=== PATIENT | female | born 1970 | race Two or more races ===

== ENCOUNTER 2016-06-01 09:59 | Outpatient (CLI) | payer MEDICAID ==
[2016-06-01 10:40] VITALS: BMI 26.5
--- NOTE | 2016-06-01 12:53 | US ---
HISTORY: Nonreactive NST Estimated due date 06/20/2016. 37 weeks 2 days gestation. biophysical profile score requested. FINDINGS: BREATHING MOVEMENTS: 2 MOTION: 2 TONE: 2 AMNIOTIC FLUID VOLUME: 2 TOTAL: 8 AMNIOTIC FLUID INDEX: 12.81 cm. HEART RATE: 141 bpm. PLACENTA: Grade 2 PRESENTATION: Transverse, head to maternal left IMPRESSION: biophysical profile score 8. Unremarkable limited biophysical profile with heart tones of 141 bpm. Follow-up as quickly warranted.
== END 2016-06-01 12:50 | disposition home or self-care (01) ==
LOC: FBCOUT 09:59 → FBC 10:12 → FBCOUT 12:50
PROVIDERS: ATTEND Obstetrics & Gynecology
DX: O76 Abnormality in fetal heart rate and rhythm complicating labor and delivery (principal); O32.2XX0 Maternal care for transverse and oblique lie, not applicable or unspecified; Z3A.00 Weeks of gestation of pregnancy not specified; O09.529 Supervision of elderly multigravida, unspecified trimester

== ENCOUNTER 2016-06-08 09:55 | Outpatient (CLI) | payer MEDICAID ==
[2016-06-08 10:56] VITALS: BMI 27.2
--- NOTE | 2016-06-08 11:35 | US ---
Exam: Ultrasound biophysical profile COMPARISON: 06/01/2016 INDICATION: Nonreactive NST. ROSEMARIE 06/20/2016 Findings: Biophysical profile ultrasound was obtained. Real-time sonographic imaging demonstrated a single live intrauterine in breech presentation with a heart rate of 164 bpm. ABI is 9.3 cm. Biophysical profile is as follows: breathing movements: 2 motion: 2 tone: 2 Amniotic fluid volume: 2 Total score: 8 out of 8. IMPRESSION: 1. Normal biophysical profile, score 8 out of 8. 2. Single live intrauterine in breech presentation with a heart rate of 164 bpm. 3. ABI 9.3 cm. Report called to Rene in the [facility] 1131 hours 06/08/2016.
== END 2016-06-08 12:05 ==
LOC: FBC 09:55 → FBCOUT 09:55
PROVIDERS: ATTEND Obstetrics & Gynecology
DX: O24.419 Gestational diabetes mellitus in pregnancy, unspecified control (principal); O09.529 Supervision of elderly multigravida, unspecified trimester; Z3A.00 Weeks of gestation of pregnancy not specified

== ENCOUNTER 2016-06-12 07:12 | Inpatient (IN) | payer MEDICAID ==
[2016-06-12 08:08] VITALS: BMI 26.6
[2016-06-12] MEDS ORDERED: LACTATED RINGERS 1,000 ML ONE (08:58)
[2016-06-12] MEDS ORDERED: IV START KIT ONE ×2 (08:58→09:32)
--- NOTE | 2016-06-12 09:09 | PDOC1 ---
- HPI 45 year old at 38+6/7 weeks gestational age by LMP, confirmed with 24- week ultrasound. Pt is gestational diabetic who is scheduled for primary c/ section tomorrow for transverse presentation. Pt comes in labor with ctx q 3-4 min and was found to be 3-4/80/-3. Bedside u/s confirms cephalic presentation. However, upon admission, FHT noted to be 130's, minimal variability and recurrent late decelerations. At this time, recommendation is to proceed with primary c/section for non-reassuring tracing. Advanced maternal age elevated quad screen gestational diabetic h/o septate uterus gbs negative SOCIAL HISTORY: Marital status: FOB involved: No Tobacco, alcohol use, or drug use. ; pt is Uzbek Speaking FAMILY HISTORY: No congenital abnormalities or twins. Allergies/Adverse Reactions: Allergies Penicillins Allergy (Severe, Verified 06/12/16 08:08) Hives - Labs & Studies LABS: Blood Type-[], Antibody [NEG], Rubella [Immune], RPR-[Negative], HbsAg-[Negative], HIV-[Negative] Pap [], GC/Chlamydia-[Negative], UA-[Negative], Quad/Integrated Screen-[Negative], 1 hr GTT-[], 3 hr GTT [], GBS-[] REVIEW OF DATES: LMP []/[]/[] -> ROSEMARIE []/[]/[] Ultrasound on []/[] @ [] []/7 WGA -> EDC []/[]/[] Ultrasound on []/[] @ [] []/7 WGA -> EDC []/[]/[] - Physical Exam General: Mild Distress, No Afebrile Psych/Mental Status: Mood/Affect Appropriate, Judgment/Insight Intact Lungs: Clear to Auscultation Bilaterally Cardiovascular: Regular Rate and Rhythm Abdomen: Other (EFW = 3300), No Tenderness Genitourinary: Other (cx=3-4/80/-3; cephalic, memb intact) Other Findings: FHT: 130's, minimal variability, recurrent late decelerations to 110's [place]: q3-4min - Assessment & Plan 45yo , at 38+6, with h/o GDM admitted in labor initial heart tracing showed minimal variaiblity with recurrent late decelerations. Variability improved with change in position however the late decelerations persisted. Pt is counseled re: indication for primary c/section for NRFHT. Discussed with patient the risks of including infection, bleeding possibly requiring blood transfusion.including bowel, bladder, uterus, tubes, ovaries, baby, and ureter, as well as will have a scar and can have persistent pain and numbness at incision site. The patient agrees to proceed with LTCS. Anesthesia has been notified. Will start IV and check labs. Proceed with primary c/section.
[2016-06-12] MEDS ORDERED: SODIUM CHLORIDE 0.9% 100 ML IV ONE (09:18)
[2016-06-12] MEDS ORDERED: PHENYLEPHRINE 10 MG/1 ML (1%) VIAL ONE (09:18)
[2016-06-12] MEDS ORDERED: OXYTOCIN 10 UNITS/ML VIAL ONE ×3 (09:18→10:46)
[2016-06-12] MEDS ORDERED: SPINAL PROCEDURAL TRAY 1 EACH ONE (09:18)
[2016-06-12] MEDS ORDERED: ONDANSETRON 4 MG/2ML 2 ML VIAL ONE (09:18)
[2016-06-12] MEDS ORDERED: MORPHINE SULFATE (DURAMORPH) 1 MG/ML 10ML AMP ONE (09:19)
[2016-06-12] MEDS ORDERED: LACTATED RINGERS 1,000 ML IV SCH (09:28)
[2016-06-12] MEDS ORDERED: CLINDAMYCIN 600 MG PREMIX 600 MG in Premix (D5W) 50 ml 1 EACH IV PRN (09:28)
[2016-06-12] MEDS ORDERED: SODIUM CHLORIDE 0.9% FLUSH 10 ML ONE (09:33)
[2016-06-12 09:36] LABS: HEMATOCRIT 36.2 % (37.0-47.0); HEMOGLOBIN 12.5 gm/l (12.0-16.0); MEAN CELL VOLUME 86.6 fl (81.0-99.0); MEAN CORPUSCULAR HEMOGLOBIN 29.9 pg (27.0-31.0); MEAN CORPUSCULAR HGB CONC 34.5 g/dl (33.0-37.0)
[2016-06-12] MEDS ORDERED: MORPHINE SULFATE 10 MG/ML SYRINGE IV PRN (11:25)
[2016-06-12] MEDS ORDERED: HYDROMORPHONE HCL 1 MG/ML SYRINGE IV PRN (11:25)
[2016-06-12] MEDS ORDERED: NALOXONE HCL 0.4 MG/ML VIAL IV PRN (11:25)
[2016-06-12] MEDS ORDERED: HYDROMORPHONE HCL 2 MG/ML SYRINGE IV PRN (11:25)
[2016-06-12] MEDS ORDERED: MORPHINE SULFATE 4 MG/ML SYRINGE IV PRN (11:25)
[2016-06-12] MEDS ORDERED: MORPHINE SULFATE 2 MG/ML SYRINGE IV PRN (11:25)
[2016-06-12] MEDS ORDERED: ONDANSETRON 4 MG/2ML 2 ML VIAL IV PRN (11:25)
[2016-06-12] MEDS ORDERED: PROMETHAZINE HCL 25 MG/ML VIAL IM PRN (11:25)
[2016-06-12] MEDS ORDERED: DIPHENHYDRAMINE HCL 50 MG/1 ML VIAL IV PRN (11:38)
[2016-06-12] MEDS ORDERED: LANOLIN 50 APPLIC/7G TUBE TP PRN (11:38)
[2016-06-12] MEDS ORDERED: DIPHENHYDRAMINE HCL 25 MG CAPSULE PO PRN (11:38)
--- NOTE | 2016-06-12 11:42 | PCMBPN ---
Brief Post Op Note: Date of Procedure: 06/12/16 Preoperative Diagnosis: 1. 38w+6d 2. labor at 3-4cm 3. Nonreassuring tracing Postoperative Diagnosis: 1. [Same] 4. Thick meconium 5. Trisomy 21 Procedure: Primary low transverse c/section Surgeon: Jacoby Jennings Assist: Jas Ortez Anesthesia: Spinal Findings: Liveborn M, apgars pending, 9lbs 3oz, cephalic presentation, very thick meconium, features c/w trisomy 21. Condition: stable Complications: none Estimated Blood Loss: 1000cc Specimens: placenta Cord pH: Arterial 7.24, BE -8.0; Venous 7.12, BE -9.8
[2016-06-12 12:06] LABS: HEMATOCRIT 36.2 % (37.0-47.0); HEMOGLOBIN 12.3 gm/l (12.0-16.0)
[2016-06-12 12:15] LABS: CALCIUM 8.8 mg/dL (8.6-10.3)
[2016-06-12] MEDS ORDERED: PNEUMOCOCCAL 23-VAL P-SAC VAC 0.5 ML VIAL SUB-Q V ONE (12:23)
--- NOTE | 2016-06-12 14:46 | OP ---
KALEY CERRATO [id number] DATE OF PROCEDURE: June 12, 2016 PREOPERATIVE DIAGNOSES: 1. 38 weeks plus 6 days gestation. 2. Labor. 3. Nonreassuring tracing. POST OPERATIVE DIAGNOSES: 1. 38 weeks plus 6 days gestation. 2. Labor. 3. Nonreassuring tracing. SURGEON: Jacoby Jennings M.D. HIGH SCHOOL LEARNING SUPPORT TEACHER: Tc Ortez C.N.M. ANESTHESIA: Spinal. ESTIMATED BLOOD LOSS: 1000 mL. COMPLICATIONS: None. OPERATIVE FINDINGS: Include a liveborn baby male, APGARS are pending. Baby weighs 9 pounds 3 ounces. There was very thick meconium noted. Baby was in cephalic presentation and has features consistent with trisomy 21. Arterial blood gases show a pH of 7.24 with base deficit of 8.0 and a venous pH was 7.12 with base deficit of minus 9.8. OPERATIVE COURSE: Patient was taken to the operating room and placed under spinal anesthesia. Patient was then prepped and draped in a sterile fashion. Adequate anesthesia was confirmed. A Pfannenstiel incision was made and taken down to the level of the fascia. The fascia was incised transversely and dissected bilaterally off of the underlying rectus muscle. The rectus muscle was easily in the midline and peritoneal cavity was entered bluntly and stretched. An Earl retractor was then placed and a bladder flap was then created. A transverse incision was made on the lower uterine segment and stretched. Upon entry into the uterine cavity, there was very thick meconium that was noted. Baby's head was then delivered and bulb suctioned in the mouth and nares. Shoulders were then delivered easily and the cord was then clamped and cut, and the baby was taken to the warmer for the nursing staff. A segment of cord was taken for a cord pH and cord blood was then collected. Placenta was then extracted manually and the uterus was cleared of all clots and membranes. The uterine incision was then closed with #0 Vicryl in a continuous fashion and a second layer of #0 Vicryl was used to imbricate this incision. Then #3-0 Vicryl was used to create hemostasis from a bleeding site on the left side. There was good hemostasis observed. The peritoneum was then reapproximated with #3-0 Vicryl and the rectus muscle was also reapproximated in interrupted suture. The fascia was then closed with #0 Vicryl in a continuous fashion. The subcutaneous space was then reapproximated with interrupted suture, and the skin was then closed with #3-0 Monocryl. The patient was then recovered from anesthesia and taken to the recovery room in stable condition. Of note, subsequent to the delivery of the baby and upon repair of the uterus, there was an event in the operating room where the father of the baby did have what appeared to be a vagal or syncopal episode and was subsequently taken out of the operating room in a wheelchair. Subsequently was stable and doing well.
[2016-06-12] MEDS: LACTATED RINGERS 1,000 ML IV SCH ×2 (14:55→21:47)
[2016-06-12] MEDS: KETOROLAC TROMETHAMINE 30 MG/ML 1 ML VIAL IV PRN ×2 (15:01→23:34)
[2016-06-12 18:02] LABS: A1C-GLYCOHEMOGLOBIN 0.4 g/dl; HEMOGLOBIN-GLYCO 11.3 g/dl
[2016-06-12] MEDS: KETOROLAC TROMETHAMINE 30 MG/ML 1 ML VIAL IV SCH ×2 (18:54→18:55)
[2016-06-13] MEDS: KETOROLAC TROMETHAMINE 30 MG/ML 1 ML VIAL IV SCH ×3 (01:38→18:03)
[2016-06-13] MEDS: DOCUSATE SODIUM 100 MG CAPSULE PO SCH ×3 (01:38→20:11)
[2016-06-13] MEDS: KETOROLAC TROMETHAMINE 30 MG/ML 1 ML VIAL IV PRN (05:24)
[2016-06-13 06:44] LABS: HEMATOCRIT 28.3 % (37.0-47.0); HEMOGLOBIN 9.5 gm/l (12.0-16.0); MEAN CELL VOLUME 88.7 fl (81.0-99.0); MEAN CORPUSCULAR HEMOGLOBIN 29.8 pg (27.0-31.0); MEAN CORPUSCULAR HGB CONC 33.6 g/dl (33.0-37.0)
[2016-06-13] MEDS: LACTATED RINGERS 1,000 ML IV SCH ×2 (07:28→18:00)
--- NOTE | 2016-06-13 08:36 | PDOC44 ---
- Subjective Day: 1 Feels well. Baby reported to be doing well at [facility]. Reports Flatus, Reports Pain Tolerable, Reports Tolerating Regular Diet - Objective Temp Pulse Resp BP Pulse Ox 98.6 F 68 16 123/64 100 06/13/16 04:20 06/13/16 04:20 06/13/16 04:20 06/13/16 04:20 06/12/16 13:23 Lab Results 06/13/16 06/12/16 06/12/16 06:10 09:00 08:00 WBC 8.3 9.6 RBC 3.19 L 4.18 L Hgb 9.5 L D 12.5 Hct 28.3 L 36.2 L Plt Count 170 189 Creatinine 0.5 L 06/12/16 06:15 WBC RBC Hgb 12.3 Hct 36.2 L Plt Count Creatinine 06/13/16 06/12/16 06/12/16 06:10 09:00 08:00 RDW 15.0 H 15.0 H Sodium 134 L Carbon Dioxide 19 L Estimated GFR 135 H BUN/Creatinine Ratio 26 H Current Medications Generic Name Dose Route Start Last Admin Trade Name Freq PRN Reason Stop Dose Admin Diphenhydramine HCl 25 - 50 mg 06/12/16 11:38 Benadryl PO Q6H PRN Itching (Mild/Moderate) Diphenhydramine HCl 25 - 50 mg 06/12/16 11:38 Benadryl IV Q6H PRN Itching (Severe) Docusate Sodium 100 mg 06/12/16 21:00 06/13/16 01:38 Colace PO Not Given BID RYAN Emollient Ointment 1 applic 06/12/16 11:38 [id number] TP PRN PRN sore nipples Ferrous Sulfate 325 mg 06/13/16 09:00 Ferrous Sulfate PO DAILY RYAN Hydromorphone HCl 0.5 - 2 mg 06/12/16 11:25 Dilaudid IV 06/13/16 11:26 Q1H PRN Pain (Breakthrough) Hydromorphone HCl 0.5 - 2 mg 06/12/16 11:25 06/12/16 11:49 Dilaudid IV 06/13/16 11:26 2 mg Q1H PRN Administration Pain Lactated Ringer's 1,000 mls @ 125 mls/hr 06/12/16 11:38 06/13/16 07:28 Lactated Ringers IV Not Given .Q8H RYAN Ibuprofen 800 mg 06/12/16 11:38 Motrin PO Q8H PRN Pain Ketorolac Tromethamine 30 mg 06/12/16 11:38 06/13/16 05:24 Toradol IV 30 mg Q6H PRN Administration Pain (Mild/Moderate) Ketorolac Tromethamine 30 mg 06/12/16 11:25 06/13/16 07:29 Toradol IV 06/13/16 11:26 Not Given Q6H [facility] Morphine Sulfate 1 - 5 mg 06/12/16 11:25 Morphine Sulfate IV 06/13/16 11:26 Q1H PRN Pain (Breakthrough) Morphine Sulfate 1 - 5 mg 06/12/16 11:25 Morphine Sulfate IV 06/13/16 11:26 Q1H PRN Pain (Breakthrough) Morphine Sulfate 1 - 5 mg 06/12/16 11:25 Morphine Sulfate IV 06/13/16 11:26 Q1H PRN Pain (Breakthrough) Multivi/Iron Carb/Fe Sulf/FA/Prenat 1 tab 06/13/16 09:00 Plus PO DAILY [facility] Naloxone HCl 0.2 - 0.4 mg 06/12/16 11:25 Narcan IV 06/13/16 11:26 Q5M PRN Ondansetron HCl 4 mg 06/12/16 11:25 Zofran IV 06/13/16 11:26 Q6H PRN Nausea/Vomiting Oxycodone/Acetaminophen 1 - 2 tab 06/12/16 11:38 Percocet 5/325 PO Q4H PRN Pain (Moderate) Promethazine HCl 6.25 - 12.5 mg 06/12/16 11:25 Phenergan IM 06/13/16 11:26 Q4H PRN Nausea/Vomiting Sodium Chloride 10 ml 06/12/16 11:38 Normal Saline 10ml Flush IV PRN PRN IV Flush Sodium Chloride 10 ml 06/12/16 17:00 06/13/16 07:49 Normal Saline 10ml Flush IV 10 ml Q8HR [facility] Administration - Physical Exam General: Afebrile Psych/Mental Status: Mood/Affect Appropriate, Judgment/Insight Intact Neurological: Grossly Intact, Alert, Oriented x 4 HEENT: Atraumatic, PERRLA, EOMI, Mucous membr. moist/pink Lungs: Clear to Auscultation Bilaterally, Normal Air Movement Cardiovascular: Regular Rate and Rhythm, Normal S1, Normal S2 Fundus: Firm, Midline, At Umbilicus Abdomen: Normal Bowel Sounds Lochia: Moderate Extremities: Full ROM Skin: Normal Color, Warm, Dry, Intact Wound COAT EXAMINER: Dressing in Place, Dressing Clean/Dry/Intact - Problems:Assessment/Plan (1) delivery delivered Status: AcuteAssessment/Plan: Stable. Continue postoperative care. May be discharged tomorrow. Disposition: Stable, Anticipate DC Home Tomorrow
[2016-06-13] MEDS: OXYCODONE/ACETAMINOPHEN 5/325 MG TABLET PO PRN ×4 (10:40→21:24)
[2016-06-13] MEDS: IBUPROFEN 800 MG TABLET PO PRN ×2 (12:07→20:11)
[2016-06-13] MEDS: PRENATAL VIT/FE FUMARATE/FA 1 TABLET PO SCH (12:15)
[2016-06-13] MEDS: FERROUS SULFATE (65 Fe) 325 MG TABLET PO SCH (12:15)
[2016-06-14] MEDS: OXYCODONE/ACETAMINOPHEN 5/325 MG TABLET PO PRN ×2 (01:40→07:23)
[2016-06-14] MEDS: IBUPROFEN 800 MG TABLET PO PRN ×2 (04:37→10:16)
[2016-06-14 07:25] VITALS: BP 120/61
[2016-06-14] MEDS: PRENATAL VIT/FE FUMARATE/FA 1 TABLET PO SCH (08:41)
[2016-06-14] MEDS: FERROUS SULFATE (65 Fe) 325 MG TABLET PO SCH (08:41)
[2016-06-14] MEDS: DOCUSATE SODIUM 100 MG CAPSULE PO SCH (08:41)
--- NOTE | 2016-06-14 09:58 | PDOC39B ---
Hospital Course: ADMIT DATE: 06/12/16 DISCHARGE DATE: 06/14/16 ADMISSION DIAGNOSES: Labor with category 3 tracing PROCEDURES: Primary section (low uterine segment transverse incision) HISTORY OF PRESENT ILLNESS: 45 year old G6 T3 L3 at 38 weeks 6 days presenting with labor prior to her scheduled primary c/section. HOSPITAL COURSE: The patient was in early active labor with a cephalic presentation, but tracing was cat 3 with recurrent late decels and poor variability. Thick mec was found. Baby is thought to have Downs. He was transferred to [place] shortly after the because of a possible cardiac issue. By day of discharge the patient is ambulating, eating, voiding, and passing flatus without difficulty. Pain is controlled and lochia is appropriate. - Physical Exam Vital Signs: Temp Pulse Resp BP Pulse Ox 98.5 F 82 16 120/61 100 06/14/16 07:24 06/14/16 07:24 06/14/16 07:24 06/14/16 07:24 06/12/16 13:23 General: Afebrile Psych/Mental Status: Mood/Affect Appropriate Neurological: Alert, Oriented x 4, Normal Speech (Persian speaker) HEENT: Atraumatic Lungs: Clear to Auscultation Bilaterally Cardiovascular: Regular Rate and Rhythm Fundus: Firm, Below Umbilicus Abdomen: Normal Bowel Sounds Lochia: Light Skin: Normal Color (H/H 9.5/28.3%), Warm, Dry Wound: Well Approximated - Discharge Diagnosis (1) delivery delivered Status: AcuteAssessment/Plan: Stable. Continue postoperative care. May be discharged tomorrow. 06/14/16 Pt is out of bed and doing well. She wants to be discharged to go to [place] to be with her new born son. RN from [facility] called this am and said he is doing better. He is thought to have Downs. - Discharge Plan Condition: Good Disposition: Home Prescriptions: Ibuprofen [IBUPROFEN 800 MG TABLET (SHF)] 800 mg PO Q8H PRN #100 PRN Reason: Pain FERROUS SULFATE (65 Fe) [IRON FERROUS SULFATE 325 MG TABLET (SHF)] 325 mg PO DAILY #100 Oxycodone HCl/Acetaminophen [PERCOCET 5/325 MG TABLET (SHF)] 1 - 2 tab PO Q4H PRN #60 PRN Reason: Pain (Moderate) Follow-Up: Diam Coreas MD [Staff Physician] - In 7-10 days
--- NOTE | 2016-06-14 12:22 | SURGPATH ---
[facility] [address] [place] [id number] Patient Name: KALEY CERRATO MR#: [id number] : 1970 Gender: F Specimen #: [id number] Collected: 06/12/2016 Received: 06/13/2016 Reported: 06/14/2016 Submitting Phys: JOHNNIE BLANCO Copy To Phys: [facility] Clinical History / Pre-Operative Diagnosis: MECONIUM; TRISOMY 21 Specimen Source / Surgical Procedure Performed: PLACENTA-PRIMARY Interpretation: PLACENTA, SECTION DELIVERY: - MECONIUM STAINED MEMBRANES Electronically Signed Out Salbador Helm M.D. Gross Description: The specimen is received in a formalin filled container labeled with the patient's name and "placenta". A 13 x 1 cm, hyper coiled, three vessel umbilical cord is completely evulsed from its insertion site at one edge of a 20 x 13 x 3 cm, 556 g discoid placenta. The surface and membranes are glistening and green giron. The membranes insert normally. There is focal pale-giron subchorionic fibrin. The maternal surface is tattered, red-giron and spongy but appears complete. Sectioning through the disc reveals no nodule or induration. Gross summary: Tattered seo placenta with completely evulsed umbilical cord, peripheral subchorionic fibrin and green giron discoloration suggestive of meconium staining. Summary of sections: A-umbilical cord and membranes B-edge section including subchorionic fibrin C and D-full thickness section adjacent to umbilical cord insertion site, bisected Elias Magaña Microscopic Description: The membrane roll is remarkable for the presence of yellow-brown pigment within the amnion consistent with meconium. Sections of umbilical cord are unremarkable. Sections of the placental disc reveal mature chorionic villi. The small amount of attached decidua is unremarkable. 1: [id number] O43.93
== END 2016-06-14 10:21 | disposition home or self-care (01) | DRG 766 ==
LOC: FBCOUT 07:12 → FBC 07:13 → FBCOUT 08:18 → FBC 08:55
PROVIDERS: ADMIT Obstetrics & Gynecology; ATTEND Obstetrics & Gynecology
PROC: 10D00Z1 Extraction of Products of Conception, Low, Open Approach (ICD-10-PCS; principal; 2016-06-12)
DX: O76 Abnormality in fetal heart rate and rhythm complicating labor and delivery (principal); O75.82 Onset (spontaneous) of labor after 37 completed weeks of gestation but before 39 completed weeks gestation, with delivery by (planned) cesarean section; O35.1XX0 Maternal care for (suspected) chromosomal abnormality in fetus, not applicable or unspecified; Z37.0 Single live birth; O77.0 Labor and delivery complicated by meconium in amniotic fluid; Z3A.38 38 weeks gestation of pregnancy; Z88.0 Allergy status to penicillin